=== PATIENT | female | born 1955 | race Caucasian/White ===

== ENCOUNTER 2017-11-20 14:11 | Emergency (ER) | payer OTHER ==
[~2017-11-20 14:11] MED LIST: BUPROPION XL300 M1 PO; FLUOXETINE HCL20 M2 PO; LEVOTHYROXINE125 MCG PO; REQUIP0.25 MG PO; TESSALON PERLE100 M1 PO; TRAZODONE HCL100 M1 PO; VENTOLIN HFA18 GM INH; VITAMIN B-125000 MC1 PO; VITAMIN D31000 UNI2 PO
[2017-11-20 14:13] VITALS: BP 150/66
--- NOTE | 2017-11-20 14:27 | ED GENERAL ADULT ---
History of Present Illness General Chief Complaint: Suture Removal/Wound Recheck Stated Complaint: SUTURE REMOVAL Source: patient Exam Limitations: no limitations Vital Signs & Intake/Output Vital Signs & Intake/Output Vital Signs Date Time Temp Pulse Resp B/P B/P Pulse O2 O2 Flow FiO2 Mean Ox Delivery Rate 11/20 1413 96.4 64 15 150/66 96 Room Air Room Air Allergies Coded Allergies: No Known Allergies (11/20/17) Reconcile Medications Bupropion HCl (Bupropion XL) 300 MG TAB.ER.24H 1 TAB PO QPM MENTAL HEALTH ( Reported) Fluoxetine HCl 20 MG CAPSULE 1 CAP PO DAILY MENTAL HEALTH (Reported) Levothyroxine Sodium 125 MCG TABLET 1 TAB PO MoTuWeThFrSa THYROID (Reported) Levothyroxine Sodium 125 MCG TABLET 1.5 TAB PO Valenzuela THYROID (Reported) Ropinirole Hydrochloride (Requip) 0.25 MG TABLET 1 TAB PO BID RESTLESS LEGS ( Reported) Triage Note: PT HERE FOR SUTURE REMOVAL TO R HAND. DENIES COMPLICATIONS. Triage Nurses Notes Reviewed? yes Onset: Abrupt Duration: day(s): Timing: constant HPI: 62-year-old female with a history of depression and hypothyroid presenting for suture removal. Patient had 8 sutures placed to the right hand laceration 10 days ago after cutting herself on a piece of glass. Denies fevers, erythema, or purulent drainage symptoms. (Alma Hanna) Past History Travel History Traveled to [place] past 21 day No Medical History Any Pertinent Medical History? 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 No (Alma Hanna) Review of Systems Review of Systems Constitutional: Reports: no symptoms. EENTM: Reports: no symptoms. Respiratory: Reports: no symptoms. Cardiovascular: Reports: no symptoms. GI: Reports: no symptoms. Genitourinary: Reports: no symptoms. Musculoskeletal: Reports: no symptoms. Skin: Reports: see HPI. Neurological/Psychological: Reports: no symptoms. Hematologic/Endocrine: Reports: no symptoms. Immunologic/Allergic: Reports: no symptoms. All Other Systems: Reviewed and Negative (Alma Hanna) Physical Exam Physical Exam General Appearance: well developed/nourished, no apparent distress, alert, awake , comfortable Head: atraumatic, normal appearance Eyes: Bilateral: normal appearance. Neck: normal inspection Respiratory: normal breath sounds, lungs clear Cardiovascular: regular rate/rhythm Gastrointestinal: soft, non-tender Back: normal inspection Extremities: on exam of the right hand there is a well-healed laceration to the dorsum of the right third MCP with [address], no surrounding erythema or purulent drainage. Neurologic/Psych: awake, alert, oriented x 3, normal gait, normal mood/affect Skin: intact, normal color, warm/dry Core Measures ACS in differential dx? No CVA/TIA Diagnosis: No Sepsis Present: No Sepsis Focused Exam Completed? No (Alma Hanna) Progress Differential Diagnoses I considered the following diagnoses in my evaluation of the patient: [Suture removal, low concern for wound infection versus wound separation] Plan of Care: 8 sutures removed, wound remains intact. Counseled on wound care instructed from her precautions. Initial ED EKG: none (Alma Hanna) Departure Departure Disposition: HOME OR SELF CARE Condition: Stable Clinical Impression Primary Impression: Visit for suture removal Referrals: Chelsi DONALDSON,Omar Nguyễn (PCP/Family) Additional Instructions: Continue keeping the wound clean and dry. Follow up with your primary care provider for re-evaluation. Return to the emergency department for any new or worsening symptoms. Departure Forms: Customer Survey General Discharge Information (Alma Hanna) PA/ONLINE PROJECT MANAGER Co-Sign Statement Statement: ED Attending supervision documentation- x I saw and evaluated the patient. I have also reviewed all the pertinent lab results and diagnostic results. I agree with the findings and the plan of care as documented in the PA's/ONLINE PROJECT MANAGER's documentation. [] I have reviewed the ED Record and agree with the PA's/ONLINE PROJECT MANAGER's documentation. [] Additions or exceptions (if any) to the PAs/ONLINE PROJECT MANAGER's note and plan are summarized below: [] (Che DONALDSON,Robinson) Critical Care Note Critical Care Note Critical Care Time: non-applicable (Alma Hanna)
== END 2017-11-20 14:40 ==
LOC: ERH 14:11
DX: Z48.02 Encounter for removal of sutures (principal)